=== PATIENT | female | born 1995 | race African-American/Black ===

== ENCOUNTER → 2016-04-29 | Day surgery (SDC) | payer OTHER ==
[2016-04-26 15:15] VITALS: Ht 161.3 cm; Wt 68.2 kg
[~2016-04-29] VITALS: Ht 161.3 cm; Wt 68.2 kg
[~2016-04-29] MED LIST: ADVIN50/60 INH; ATROPINE SULFATE 0.1 MG/ML 5ML SYR IV PRN; BCPILLS PO; BUPIVACAINE 0.5 % 5 MG/1 ML MPF 30ML VIAL ONE; CEFAZOLIN 1000MG/55 ML D5W IV SCH; CETI10TA84 PO; DEXAMETHASONE SOD INJ 4 MG/ML VIAL ONE; EpHEDrine SULFATE INJ 50 MG/ML AMP IV PRN; FENTANYL CITRATE INJ 50 MCG/1 ML 2 ML VIAL IV PRN; FENTANYL CITRATE INJ 50 MCG/1 ML 2 ML VIAL ONE; GLYCOPYRROLATE INJ 0.2 MG/ML VIAL ONE; LACTATED RINGER'S 1000ML 1,000 ML IV SCH; LIDOCAINE HCL 2% 2 ML VIAL (20MG/ML) ONE; LIDOCAINE/EPINEPHRINE 1% INJ 50 ML VIAL ONE; MIDAZOLAM HCL 1 MG/ML 2ML VIAL ONE; MONT1TAB3 PO; MoRPHine SULFATE 2 MG/ML CARP IV PRN; MoRPHine SULFATE 4 MG/ML 1 ML CARP\\VIAL IV PRN; ONDANSETRON INJ 2 MG/ML 2 ML VIAL IV PRN; ONDANSETRON INJ 2 MG/ML 2 ML VIAL ONE; OXYCODONE/ACETAMINOPHEN 5-325 TAB PO PRN; PATIENT'S ALLERGY INFO NEEDS ENTERED SCH; PROPOFOL IV EMULSION 10 MG/ML 20 ML VIAL IV ONE; ROPIVACAINE 0.5% 5 MG/ML 30 ML VIAL ONE; SUCCINYLCHOLINE CHLORIDE 20 MG/ML 10 ML VIAL IV ONE; VNTHFA/IN INH
--- NOTE | 2016-04-29 13:02 | History & Physical Bridge - SC ---
H&P Re-Evaluation Bridge Note: I have examined the patient, reviewed the History & Physical and in the interval since the performance of the History & Physical I have noted the following changes of clinical significance: No changes noted
--- NOTE | 2016-04-29 14:56 | [facility] Post Operative Brief Note ---
Immediate Operative Summary Operative Date Apr 29, 2016. Pre-Operative Diagnosis Left Achilles Rupture Post-Operative Diagnosis same Procedure(s) Performed Left Achilles repair Surgeon Dr. Albert Dang Net Sql Developer Surgeon(s) Roly Reece PA-C, Vikas Alan,MALUII (No fellow avail) Estimated Blood Loss 5CC Findings Complete rupture L Achilles. Fluids (cc crystalloids) 1300 Specimens none Drains n/a Anesthesia GET + Popliteal block Complication(s) None Disposition Recovery Room / PACU (Stable)
--- NOTE | 2016-04-29 14:57 | [facility] Operative Report ---
Operative Report Operative Date Apr 29, 2016. Pre-Operative Diagnosis Left Achilles Rupture Post-Operative Diagnosis same Procedure(s) Performed Left Achilles repair Surgeon Dr. Albert Dang [employer] Station Operator Surgeon(s) Roly Reece PA-C, MIGUEL Gale (No fellow avail) Estimated Blood Loss 5CC Findings Complete rupture left Achilles tendon. 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 After a lengthy discussion with the patient regarding her treatment options of conservative versus surgical intervention, the patient has elected to proceed with surgical intervention. The patient understands the risks of surgery, which include but are not limited to: bleeding, infection, re-operation, damage to nerves and arteries, continued pain, decreased level of activity, and DVT. The patient understands all of these instructions and explanations, all of their questions have been satisfactorily addressed. The patient has elected to proceed with surgery and the informed consent was signed. Description of Procedure The patient was taken to the Operating Room and after general anesthetic was administered a multidisciplinary time-out was performed identifying my initials on the left limb as the correct and operative limb, the patient was placed in the prone position on the operating table. Prior to the incision being made, 1 gram of intravenous Ancef was given. The left lower leg was prepped and draped in the standard sterile fashion. The Achilles tendon and defect were palpated and marked. The planned incision approximately 7 cm in length was marked just medial to the Achilles tendon. The incision was injected with a 50:50 mixture of 1% Lidocaine plain and 0.5% Marcaine with Epinephrine for a total of 10 cc. The planned incision was created exposing the peritenon and defect. The peritenon was incised to expose the ruptured Achilles tendon approximately 4 cm from its insertion on the calcaneus. There was fraying of both ends. Any adhesions were release to allow mobilization of the tendons ends. The wound was copiously irrigated. The anterior peritenon was released exposing the FHL, to allow easier closure of the posterior peritenon over the repaired tendon later. Placement of #2 FiberWire in [place] fashion with 4 strands in both ends was performed. The inferior limbs were tied first followed by the superior limbs in the standard fashion. The inferior limbs were tied first followed by the superior limbs in the standard fashion. One strand from each of the medial knots were tied together, then using a free needle the knot was docked inferiorly and a second strand was placed through the other limb of the tendon and tied inferiorly. The suture was cut short in the standard fashion. This was repeated on the lateral side, creating a stress 6 strand repair. The foot was able to be flexed easily to neutral without tension or gapping of the repair. 0 Vicryl was used for an epi-tendinous stitch. Pabon testing was now negative. The peritenon was closed sequentially with 2-0 Vicryl. The subcutaneous layer was closed with 3-0 Vicryl. The skin was closed with 3-0 Nylon in horizontal mattress fashion. Xeroform was placed over top, followed by 4x4's, ABD, sterile cast padding, and posterior splint. The sponge and needle counts were correct. Post-op Instructions: Pain medicine prescription was given pre-operatively to be taken as needed. The patient will follow up with me in 10-15 days. The patient will remain NWB RLE for 2 weeks. The patient will start rehab in 2 days and will have the splint removed and replaced with a cam boot and heel lift. I attest to the content of the Intraoperative Record and any orders documented therein. Any exceptions are noted below.
--- NOTE | 2016-04-29 15:01 | Discharge Instructions-SurgCtr ---
Discharge Instructions Visit Reason for Visit: Left Achilles Rupture Discharge Discharge Diagnosis / Problem: Status post Left Achilles repair Discharge Goals Goal(s): Decrease discomfort, Improve function, Increase independence Activity Recommendations Activity Limitations: per Instructions/Follow-up section Exercise/Sports Limitations: none May Resume Sexual Activity: when tolerated Shower/Bathe: may shower/bathe in 3 days Driving or Machine Use: Not while on Narcotics and must be out of boot Weightbearing Status: Left non-weightbearing Anesthesia . Post Anesthesia Instructions: If you have had General Anesthesia or IV Sedation: * Do not drive today. * Resume driving when surgeon permits. * Do not make important decisions or sign legal documents today. * Call surgeon for: 1. Temperature elevations greater than 101 degrees F. 2. Uncontrollable pain. 3. Excessive bleeding. 4. Persistent nausea and vomiting. 5. Medication intolerance (nausea, vomiting or rash). * For nausea and vomiting use only clear liquids such as: tea, soda, bouillon until nausea subsides, then gradually increase diet as tolerated. * If you have any concerns or questions, call your surgeon's office. If physician is unavailable and it is an emergency, call 911 or go to the nearest emergency room. . Instructions / Follow-Up Instructions / Follow-Up With Dr. Dang in 10-15 days. PT in 1-2 days. Diet Recommendations Home Diet: resume previous diet Procedures Procedures Performed: Left Achilles repair Pending Studies Studies pending at discharge: no Medical Emergencies . Who to Call and When: Medical Emergencies: If at any time you feel your situation is an emergency, please call 911 immediately. . Non-Emergent Contact Non-Emergency issues call your: Surgeon Call Non-Emergent contact if: temperature is above 101.5, your pain is not controlled, wound has increased drainage, wound has increased redness . . "Provider Documentation" section prepared by Alexander Dang.
--- NOTE | 2016-04-29 15:15 | [facility] Operative Report ---
Operative Report Operative Date Apr 29, 2016. Pre-Operative Diagnosis Left Achilles Rupture Post-Operative Diagnosis same Procedure(s) Performed Left Achilles repair Surgeon Dr. Albert Dang [employer] Specialist Surgeon(s) Roly Reece PA-C, Vikas Alan,MIGUEL (No fellow avail) Estimated Blood Loss 5CC Findings same Fluids (cc crystalloids) 1300 Specimens none Drains none Anesthesia general, block Complication(s) None Disposition Recovery Room / PACU Implants none Indications sustained injury to left lower extremity, surgery recommended, consents signed. Description of Procedure taken to the OR, prepped and draped, I was present the entire case, please see Dr. Dang's op note for further detail I attest to the content of the Intraoperative Record and any orders documented therein. Any exceptions are noted below.
[2016-04-29 16:00] VITALS: TEMP 36.7
--- NOTE | 2016-04-29 16:08 | Anesthesia Progress Nt - [facility] ---
Anesthesia Post Op Note Date & Time Apr 29, 2016 at 16:07 Vital Signs Pain Intensity: 1 Vital Signs Past 12 Hours Date Time Temp Pulse Resp B/P Pulse Ox O2 Delivery O2 Flow Rate FiO2 04/29/16 15:56 65 17 04/29/16 15:56 63 17 100 04/29/16 15:55 58 14 100 04/29/16 15:55 58 14 04/29/16 15:53 132/84 04/29/16 15:50 59 16 04/29/16 15:50 59 16 98 04/29/16 15:50 36.7 70 20 128/87 100 Room Air 04/29/16 15:48 128/87 04/29/16 15:47 125/83 04/29/16 15:45 62 16 100 04/29/16 15:45 61 16 04/29/16 15:44 63 16 100 04/29/16 15:44 63 16 04/29/16 15:43 119/105 04/29/16 15:39 62 15 04/29/16 15:39 69 15 97 04/29/16 15:38 122/93 04/29/16 15:34 71 16 04/29/16 15:34 73 16 121/82 100 04/29/16 15:29 68 15 100 04/29/16 15:29 64 15 04/29/16 15:28 120/89 04/29/16 15:25 70 22 04/29/16 15:25 70 22 100 04/29/16 15:23 134/99 04/29/16 15:21 37.3 83 22 137/91 100 Mask 10 04/29/16 15:20 87 04/29/16 15:20 87 97 04/29/16 15:19 137/91 04/29/16 13:25 0 04/29/16 13:24 77 04/29/16 13:24 77 0 100 04/29/16 13:23 133/76 04/29/16 13:19 86 100 04/29/16 13:19 85 04/29/16 13:18 121/67 04/29/16 13:14 82 04/29/16 13:14 80 10 100 04/29/16 13:13 131/82 04/29/16 13:10 136/92 04/29/16 13:09 89 04/29/16 13:09 91 0 100 04/29/16 13:04 0 04/29/16 12:59 70 04/29/16 12:59 69 0 100 04/29/16 12:54 70 0 100 04/29/16 12:54 71 04/29/16 12:49 72 04/29/16 12:49 71 0 100 04/29/16 12:44 70 0 100 04/29/16 12:44 70 04/29/16 12:39 66 04/29/16 12:39 66 0 99 04/29/16 12:34 69 04/29/16 12:34 68 0 100 04/29/16 12:29 67 04/29/16 12:29 67 0 100 04/29/16 12:24 68 0 100 04/29/16 12:24 68 04/29/16 12:19 73 0 99 04/29/16 12:19 75 04/29/16 11:54 36.9 82 16 118/68 100 Room Air Notes Mental Status: alert / awake / arousable, participated in evaluation Pt Amnestic to Procedure: Yes Nausea / Vomiting: adequately controlled Pain: adequately controlled Airway Patency, RR, SpO2: stable & adequate BP & HR: stable & adequate Hydration State: stable & adequate Anesthetic Complications: no major complications apparent
[2016-04-29 16:43] VITALS: BP 105/71; PULSE 61; O2SAT 99
== END | disposition home or self-care (01) ==
LOC: X.SURG 11:37
PROVIDERS: ATTEND Orthopaedic Surgery Sports Medicine
DX: S86.012A Strain of left Achilles tendon, initial encounter (principal); Y93.79 Activity, other specified sports and athletics; Y92.89 Other specified places as the place of occurrence of the external cause; M79.89 Other specified soft tissue disorders